=== PATIENT | female | born 1995 | race African-American/Black ===

== ENCOUNTER 2017-07-12 22:22 | Emergency (ER) | payer MEDICAID ==
[~2017-07-12] VITALS: Ht 167.6 cm; Wt 65.0 kg
[2017-07-12 22:23] VITALS: BP 121/74; PULSE 73; RESP 16; TEMP 99; O2SAT 100
--- NOTE | 2017-07-13 03:55 | PD ---
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 The patient reports that she recently joined a marching band, and has had discomfort in her bilateral knees. She denies recent trauma. No fevers. Currently she is pain-free, however she states when she marches she experiences pain in her knees. She also is complaining of some generalized weakness and believe she may be anemic. She denies heavy vaginal bleeding, melena or hematochezia. PFSH Past Medical History ?: Not Social History Tobacco Use: No Allergies-Medications (Allergen,Severity, Reaction): Coded Allergies: No Known Allergies (Unverified , 07/13/17) Review of Systems Except as stated in HPI: all other systems reviewed are Neg Physical Exam Narrative GENERAL: Well-developed, well-nourished, comfortable, no apparent distress. SKIN: Focused skin assessment warm/dry. HEAD: Atraumatic. Normocephalic. EYES: Pupils equal and round. No scleral icterus. No injection or drainage. ENT: Mucous membranes pink and moist. NECK: Trachea midline. No JVD. CARDIOVASCULAR: Regular rate and rhythm. RESPIRATORY: No accessory muscle use. Clear to auscultation. Breath sounds equal bilaterally. GASTROINTESTINAL: Abdomen soft, non-tender, nondistended. MUSCULOSKELETAL: No obvious deformities. No clubbing. No cyanosis. No edema. Bilateral knees are without obvious deformity, without tenderness, with normal range of motion, without edema. Bilateral calves are supple, nontender. NEUROLOGICAL: Awake and alert. No obvious cranial nerve deficits. Motor grossly within normal limits. Normal speech. PSYCHIATRIC: Appropriate mood and affect; insight and judgment normal. Data Data Last Documented VS Vital Signs Date Time Temp Pulse Resp B/P (MAP) Pulse Ox O2 Delivery O2 Flow Rate FiO2 07/13/17 06:10 07/12/17 22:23 99.0 73 16 100 Room Air Orders Orders Knee, Ltd (1 Or 2vws) (07/13/17 ) Knee, Ltd (1 Or 2vws) (07/13/17 ) Basic Metabolic Panel (Bmp) (07/13/17 03:51) Beta Hcg (Quant/Titer) (07/13/17 03:51) Complete Blood Count With Diff (07/13/17 03:51) Iv Access Insert/Monitor (07/13/17 03:51) Ecg Monitoring (07/13/17 03:51) Oximetry (07/13/17 03:51) Labs Laboratory Tests Test 07/13/17 04:10 White Blood Count 5.3 TH/MM3 Red Blood Count 3.82 MIL/MM3 Hemoglobin 9.6 GM/DL Hematocrit 29.7 % Mean Corpuscular Volume 77.7 FL Mean Corpuscular Hemoglobin 25.0 PG Mean Corpuscular Hemoglobin Concent 32.2 % Red Cell Distribution Width 17.3 % Platelet Count 229 TH/MM3 Mean Platelet Volume 9.4 FL Neutrophils (%) (Auto) 42.6 % Lymphocytes (%) (Auto) 46.8 % Monocytes (%) (Auto) 8.0 % Eosinophils (%) (Auto) 1.7 % Basophils (%) (Auto) 0.9 % Neutrophils # (Auto) 2.3 TH/MM3 Lymphocytes # (Auto) 2.5 TH/MM3 Monocytes # (Auto) 0.4 TH/MM3 Eosinophils # (Auto) 0.1 TH/MM3 Basophils # (Auto) 0.0 TH/MM3 CBC Comment DIFF FINAL Differential Comment Blood Urea Nitrogen 9 MG/DL Creatinine 0.80 MG/DL Random Glucose 83 MG/DL Calcium Level 8.6 MG/DL Sodium Level 140 MEQ/L Potassium Level 3.8 MEQ/L Chloride Level 106 MEQ/L Carbon Dioxide Level 27.1 MEQ/L Anion Gap 7 MEQ/L Estimat Glomerular Filtration Rate 111 ML/MIN Human Chorionic Gonadotropin, Quant LESS THAN 1 MIU/ML MDM Medical Decision Making Medical Screen Exam Complete: Yes Emergency Medical Condition: Yes Differential Diagnosis Knee sprain, septic arthritis unlikely, DVT unlikely, bony abnormality, anemia Narrative Course Initial vital signs show heart rate 73, blood pressure 121/74, pulse ox 100% on room air, oral temp of 99F. Bilateral knee x-rays read as normal exam. CBC is remarkable for hemoglobin 9.6, hematocrit 29.7, MCV 77.7. BMP is unremarkable. Beta hCG is negative. The patient was made aware of all findings per she is resting comfortably. Her anemia is likely secondary to iron deficiency anemia. Bilateral knee exams are unremarkable. I do not suspect septic arthritis. She has normal range of motion in bilateral knees with no obvious deformity and no tenderness. She is stable for discharge home with outpatient follow-up with a primary care physician this week. She was encouraged to take an [id number] iron pill daily. She was informed on when to return to the emergency department. She verbalizes understanding and agreement with plan. Diagnosis Primary Impression: Anemia Qualified Codes: D64.9 - Anemia, unspecified Additional Impression: Bilateral knee pain Qualified Codes: M25.561 - Pain in right knee; M25.562 - Pain in left knee Referrals: Primary Care Physician 3 days Additional Instructions: Follow-up with a primary care physician this week. Return to the emergency department for worsening symptoms or any other concerns. Disposition: 01 DISCHARGE HOME Condition: Stable Clifton Andrews MD Jul 13, 2017 03:55
[2017-07-13 04:25] LABS: AUTOMATED NEUTROPHIL # 2.3 TH/MM3 (1.8-7.7); BASOPHIL % 0.9 % (0.0-2.0); EOSINOPHIL # 0.1 TH/MM3 (0-0.4); EOSINOPHIL % 1.7 % (0.0-4.0); HEMATOCRIT 29.7 % (35.0-46.0); HEMO FLAGS DIFF FINAL; LYMPH % 46.8 % (9.0-44.0); LYMPHOCYTE # 2.5 TH/MM3 (1.0-4.8); MEAN CELL VOLUME 77.7 FL (80.0-100.0); MEAN CORPUSCULAR HGB CONC 32.2 % (32.0-36.0); NEUT % 42.6 % (16.0-70.0); PLATELET COUNT 229 TH/MM3 (150-450); RED BLOOD COUNT 3.82 MIL/MM3 (4.00-5.30); RED CELL DISTRIBUTION WIDTH 17.3 % (11.6-17.2); WHITE BLOOD COUNT 5.3 TH/MM3 (4.0-11.0)
--- NOTE | 2017-07-13 04:38 | RADRPT ---
EXAM DATE/TIME: 07/13/2017 04:17 [facility] COMPARISON: No previous studies available for comparison. INDICATIONS : Right knee pain. No known injury. MEDICAL HISTORY : None. SURGICAL HISTORY : None. ENCOUNTER: Initial ACUITY: 1 month PAIN SCORE: 6/10 LOCATION: Right Knee FINDINGS: 2 views of the right knee demonstrate no fracture or dislocation. No joint effusion is present. There is no significant arthropathy and mineralization is within normal limits. No soft tissue abnormality or radiopaque foreign body is identified. CONCLUSION: Normal examination of the right knee. Stone Miranda MD on July 13, 2017 at 4:36 Board Certified Radiologist. This report was verified electronically.
--- NOTE | 2017-07-13 04:38 | RADRPT ---
EXAM DATE/TIME: 07/13/2017 04:18 [facility] COMPARISON: No previous studies available for comparison. INDICATIONS : Pain in left knee. No known injury. MEDICAL HISTORY : None. SURGICAL HISTORY : None. ENCOUNTER: Initial ACUITY: 1 month PAIN SCORE: 6/10 LOCATION: Left Knee FINDINGS: 2 views of the left knee demonstrate no fracture or dislocation. No joint effusion is present. There is no significant arthropathy and mineralization is within normal limits. No soft tissue abnormality or radiopaque foreign body is identified. CONCLUSION: Normal examination of the left knee. Stone Miranda MD on July 13, 2017 at 4:36 Board Certified Radiologist. This report was verified electronically.
[2017-07-13 04:49] LABS: ANION GAP 7 MEQ/L (5-15); BICARBONATE 27.1 MEQ/L (21.0-32.0); BLOOD UREA NITROGEN 9 MG/DL (7-18); CHLORIDE 106 MEQ/L (98-107); GLOMERULAR FILTRATION RATE 111 ML/MIN (>89); POTASSIUM 3.8 MEQ/L (3.5-5.1); SODIUM (NA) 140 MEQ/L (136-145)
[2017-07-13 04:52] LABS: BETA HCG QUANT LESS THAN 1 MIU/ML (0-5)
== END 2017-07-13 06:10 | disposition home or self-care (01) ==
LOC: NEPE 22:22
DX: D64.9 Anemia, unspecified (principal); M25.562 Pain in left knee; M25.561 Pain in right knee; R53.1 Weakness
CPT/HCPCS: 73560; 80048; 84702; 85025; 99284